=== PATIENT | female | born 1995 | race Caucasian/White ===

== ENCOUNTER → 2025-05-15 07:17 | Outpatient (REF) | payer OTHER, SELFPAY | LOC: HWRAD 07:17 | PROVIDERS: ATTENDING PHYSICIAN Student in an Organized Health Care Education/Training Program; FAMILY PHYSICIAN Physician Assistant Medical | DX: E04.9 Nontoxic goiter, unspecified (principal); Z86.39 Personal history of other endocrine, nutritional and metabolic disease | CPT/HCPCS: 76536 ==

== ENCOUNTER 2025-05-29 06:39 | Day surgery (SDC) | payer OTHER, SELFPAY ==
[2025-05-29] VITALS (7 sets, daily range): BP systolic 122–134; BP diastolic 82–90; BMI 29.6
[2025-05-29] MEDS: NORMOSOL-R/PLASMALYTE-A 1000 IV (08:21)
[2025-05-29] MEDS: TRANSDERM-SCOP 1 PATCH TRANSDERM (09:17)
== END 2025-05-29 13:20 | disposition home or self-care (01) ==
LOC: SDS 06:39
PROVIDERS: ATTENDING PHYSICIAN Otolaryngology
DX: J32.2 Chronic ethmoidal sinusitis (principal); J32.0 Chronic maxillary sinusitis; J34.3 Hypertrophy of nasal turbinates
CPT/HCPCS: 31257; 31256; 30140; 88304; 88311